=== PATIENT | male | born 1940 | race Caucasian/White ===

== ENCOUNTER 2019-07-10 05:34 | Emergency (ER) | payer MEDICARE, OTHER ==
[~2019-07-10] VITALS: Ht 180.3 cm; Wt 102.1 kg
[2019-07-10 07:00] LABS: BASOPHILS ABSOLUTE AUTO 0.04 K/mm3 (0.00-0.23); BASOPHILS PERCENT AUTO 1 % (0-2); EOSINOPHILS ABSOLUTE AUTO 0.23 K/mm3 (0.00-0.68); EOSINOPHILS PERCENT AUTO 4 % (0-6); Hematocrit 42.2 % (37.0-53.0); Hemoglobin 14.2 g/dL (13.5-17.5); IMMATURE GRAN ABSOLUTE AUTO 0.02 K/mm3 (0.00-0.10); IMMATURE GRAN PERCENT AUTO 0 % (0-1); LYMPHOCYTES ABSOLUTE AUTO 1.34 K/mm3 (0.84-5.20); LYMPHOCYTES PERCENT AUTO 24 % (21-46); MONOCYTES ABSOLUTE AUTO 0.55 K/mm3 (0.16-1.47); MONOCYTES PERCENT AUTO 10 % (4-13); Mean Corpuscular HGB 31.4 pg (26.0-34.0); Mean Corpuscular HGB Conc 33.6 g/dL (31.5-36.5); Mean Corpuscular Volume 93 fL (80-100); Mean Platelet Volume 10.6 fL (9.1-12.4); NEUTROPHILS ABSOLUTE AUTO 3.32 K/mm3 (1.96-9.15); NEUTROPHILS PERCENT AUTO 60 % (41-73); Platelet Count 177 K/mm3 (150-400); RDW Coefficient Variation 13.6 % (11.7-14.2); RDW Standard Deviation 46.5 fL (35.1-46.3); Red Blood Cell Count 4.52 M/mm3 (4.30-5.90)
[2019-07-10 07:19] LABS: Alanine Aminotransfer (ALT/SGP 17 U/L (12-78); Albumin, Blood 3.4 g/dL (3.4-5.0); Albumin/Globulin Ratio 1.2 (0.8-1.8); Alk Phos 86 U/L (50-136); Anion Gap 5 mmol/L (6-16); Aspartate Aminotrans (AST/SGOT 13 U/L (12-37); Bilirubin, Total 0.4 mg/dL (0.1-1.0); Blood Urea Nitrogen 13 mg/dL (8-24); Bun/Creatinine Ratio 12.5 (12.0-20.0); CO2, Blood 29 mmol/L (21-32); Calcium, Blood 8.9 mg/dL (8.5-10.1); Chloride, Blood 112 mmol/L (98-108); Creatinine, Blood 1.04 mg/dL (0.60-1.20); Globulin, Blood 2.8 g/dL (2.2-4.0); Glomerular Filtration Rate >60 (60-); Glucose, Blood 108 mg/dL (70-99); Potassium, Blood 4.1 mmol/L (3.5-5.5); Sodium, Blood 146 mmol/L (136-145); Total Protein, Blood 6.2 g/dL (6.4-8.2); Troponin I <0.015 ng/mL (0.000-0.040)
== END 2019-07-10 07:53 | disposition home or self-care (01) ==
LOC: ER 05:34
PROVIDERS: Emergency Medicine
DX: R53.1 Weakness (principal); Z88.8 Allergy status to other drugs, medicaments and biological substances
CPT/HCPCS: 36415; 80053; 84484; 85025; 93005; 93010; 99285-25

== ENCOUNTER → 2019-07-15 | Outpatient (CLI) | payer MEDICARE, OTHER ==
[2019-07-17 13:07] LABS: M-SPIKE, % Not Observed % (Not Observed); PROTEIN,TOTAL,URINE 5.2 mg/dL (Not Estab.)
== END | disposition home or self-care (01) ==
LOC: LAB SHORT 06:00 → OLS 06:00 → LAB FUT 07-08 14:00
PROVIDERS: Internal Medicine
DX: Z00.01 Encounter for general adult medical examination with abnormal findings (principal)
CPT/HCPCS: 81050; 84166

== ENCOUNTER → 2022-01-02 | Outpatient (CLI) | payer MEDICARE, BC ==
[2022-01-03 11:12] LABS: Campylobacter Sp Not Detected (NOT DETECT); Cryptosporidium Not Detected (NOT DETECT); Cyclospora Cayetanensis Not Detected (NOT DETECT); E. Coli O157 Not Detected (NOT DETECT); Entamoeba Histolytica Not Detected (NOT DETECT); Enteroaggregative E. coli-EAEC Not Detected (NOT DETECT); Enteropathogenic E. coli-EPEC Not Detected (NOT DETECT); Enterotoxigenic E. coli-ETEC Not Detected (NOT DETECT); Giardia Lamblia Not Detected (NOT DETECT); Plesiomonas Shigelloides Not Detected (NOT DETECT); Salmonella Sp Not Detected (NOT DETECT); Shiga Toxin-prod E. coli-STEC Not Detected (NOT DETECT); Shigella/Enteroin E. coli-EIEC Not Detected (NOT DETECT); Vibrio Cholerae Not Detected (NOT DETECT); Vibrio Sp Not Detected (NOT DETECT); Yersinia Enterocolitica Not Detected (NOT DETECT)
[2022-01-03 11:13] LABS: Adenovirus F 40/41 Not Detected (NOT DETECT); Astrovirus Not Detected (NOT DETECT); Norovirus GI/GII Not Detected (NOT DETECT); Rotavirus A Not Detected (NOT DETECT); Sapovirus Not Detected (NOT DETECT)
== END | disposition home or self-care (01) ==
LOC: LAB SHORT 20:30
PROVIDERS: Physician Assistant Medical
DX: R19.7 Diarrhea, unspecified (principal)
CPT/HCPCS: 0097U

== ENCOUNTER 2023-07-06 14:53 | Observation (INO) | payer OTHER ==
[~2023-07-06] VITALS: Ht 185.4 cm; Wt 102.2 kg
[2023-07-06 15:14] LABS: BASOPHILS ABSOLUTE AUTO 0.07 K/mm3 (0.00-0.23); BASOPHILS PERCENT AUTO 1 % (0-2); EOSINOPHILS ABSOLUTE AUTO 0.23 K/mm3 (0.00-0.68); EOSINOPHILS PERCENT AUTO 3 % (0-6); Hemoglobin 15.1 g/dL (13.5-17.5); IMMATURE GRAN ABSOLUTE AUTO 0.02 K/mm3 (0.00-0.10); IMMATURE GRAN PERCENT AUTO 0 % (0-1); LYMPHOCYTES ABSOLUTE AUTO 1.96 K/mm3 (0.84-5.20); LYMPHOCYTES PERCENT AUTO 26 % (21-46); MONOCYTES ABSOLUTE AUTO 0.47 K/mm3 (0.16-1.47); MONOCYTES PERCENT AUTO 6 % (4-13); Mean Corpuscular HGB 31.5 pg (26.0-34.0); Mean Corpuscular HGB Conc 35.1 g/dL (31.5-36.5); Mean Corpuscular Volume 90 fL (80-100); Mean Platelet Volume 10.9 fL (9.1-12.4); NEUTROPHILS ABSOLUTE AUTO 4.68 K/mm3 (1.96-9.15); NEUTROPHILS PERCENT AUTO 63 % (41-73); Platelet Count 200 K/mm3 (150-400); RDW Coefficient Variation 13.4 % (11.7-14.2); Red Blood Cell Count 4.79 M/mm3 (4.30-5.90); White Blood Cell Count 7.43 K/mm3 (4.00-11.30)
[2023-07-06 15:41] LABS: Albumin, Blood 3.7 g/dL (3.4-5.0); Albumin/Globulin Ratio 1.3 (0.8-1.8); Bilirubin, Total 0.4 mg/dL (0.1-1.0); Bun/Creatinine Ratio 20.4 (12.0-20.0); Calcium, Blood 9.1 mg/dL (8.5-10.1); Creatinine, Blood 1.08 mg/dL (0.60-1.20); Globulin, Blood 2.8 g/dL (2.2-4.0); Potassium, Blood 3.7 mmol/L (3.5-5.5); Total Protein, Blood 6.5 g/dL (6.4-8.2)
[2023-07-06] MEDS ORDERED: ALLEGRA ALLERG180 MG PO (17:05)
[2023-07-06] MEDS ORDERED: Flovent 220 Ora12 GM INH (17:06)
[2023-07-06] MEDS ORDERED: MONT5TCH (17:06)
[2023-07-06] MEDS ORDERED: COMBIVENT RESPIM4 G1 INH (17:06)
[2023-07-06] MEDS ORDERED: OLME5TAB PO (17:06)
[2023-07-06] MEDS ORDERED: Zocor20 MG PO (17:07)
[2023-07-06] MEDS ORDERED: ALLO100 PO (17:07)
[2023-07-06] MEDS ORDERED: VITAMIN D310 MC1 PO (17:07)
[2023-07-06] MEDS ORDERED: CYCL10 (17:07)
[2023-07-06] MEDS ORDERED: ASPI81CH PO (17:08)
[2023-07-06] MEDS ORDERED: IBUP200 PO (17:08)
[2023-07-06] MEDS ORDERED: CITRATE OF MAG296 M1 (17:08)
[2023-07-06 17:18] LABS: Source, Urine Voided
[2023-07-06 17:28] LABS: Appearance, Urine Clear (Clear); Bilirubin, Urine Neg (Neg); Blood, Urine Neg (Neg); Color, Urine Yellow (P-Yellow); Glucose Qualitative, Urine Neg (Neg); Ketones, Urine Neg (Neg); Leukocyte Esterase, Urine Neg (Neg); Nitrite, Urine Neg (Neg); Protein, Urine Neg (Neg); Specific Gravity, Urine 1.015 (1.003-1.022); Urobilinogen, Urine NORM (Normal)
--- NOTE | 2023-07-06 20:15 | NUR ---
ADMIT NOTE; PT ARRIVES FROM THE ED VIA WHEELCHAIR. UPON ADMIT THE PT IS AXO X4 AND ABLE TO INDEPENDENTLY TRANSFER FROM THE WHEELCHAIR TO THE BED. THE PT DENIES ANY ACUTE NEEDS AT TIME OF ADMIT. THE PT DENIES ANY CHEST PAIN/PRESSURE, SOB OR PAIN. THE PTS SKIN IS INTACT. CURRENTLY THE PT IS LAYING IN BED, TELE IS IN PLACE-NSR IN THE 70'S. THE BED IS IN THE LOWEST POSITION AND THE CALL LIGHT IS AT BEDSIDE. FIRE EDUCATION PROVIDED, THE PT DENIES HAVING ANY POSSIBLE IGNITION SOURCES IN POSSESSION AT THIS TIME.
[2023-07-06 20:24] VITALS: BP 200/72
[2023-07-06 20:26] VITALS: BP 195/87
--- NOTE | 2023-07-06 21:30 | NUR ---
CALLED [facility] [facility] REARDING PTS BLOOD PRESSURE. PER [facility] [facility] ALLOW PERMISSIVE HYPETENSION. PRN LABETALOL ORDERED FOR SBP >200.
--- NOTE | 2023-07-07 04:20 | NUR ---
SHIFT SUMMARY; NO ACUTE CHANGES OVERNIGHT. THE PT IS AXO X4 AND INDEPENDENT IN THE ROOM. THE PT HAS TELE ON-NSR IN THE 'S. THE PT WENT DOWN LAST NIGHT FOR AN MRI-RESULTS ARE STILL PENDING. THE PT DENIES ANY CHEST PAIN/PRESSURE, SOB, PAIN OR N/V T/O THE SHIFT. CURRENTLY THE PT IS SLEEPING IN BED WITH THE BED IN THE LOWEST POSITION AND THE CALL LIGHT AT BEDSIDE. FIRE SAFETY MAINTAINED T/O THE NIGHT.
[2023-07-07 04:31] VITALS: BP 194/66
[2023-07-07 05:39] LABS: CHOL/HDL RATIO 4.7; Cholesterol 156 mg/dL (50-200); HDL Cholesterol 33 mg/dL (>39); LDL/HDL RATIO 2.9; Low Density Lipoprotein Chol 96 mg/dL (0-110); Triglycerides 137 mg/dL (30-160); Very Low Density Lipoprot Chol 27 mg/dL (6-32)
[2023-07-07 07:26] VITALS: BP 163/80
[2023-07-07] MEDS ORDERED: Acetyl L-Carni500 MG PO (12:33)
[2023-07-07] MEDS ORDERED: Natrol Alpha 3300 MG PO (12:33)
[2023-07-07] MEDS ORDERED: ATOR40TA PO (13:04)
[2023-07-07] MEDS ORDERED: CLOP75 PO (13:04)
[2023-07-07] MEDS ORDERED: AMLO5 PO (13:04)
[2023-07-07] MEDS ORDERED: ASPI81CH PO (13:04)
[2023-07-07] MEDS ORDERED: LISI10 PO (13:05)
--- NOTE | 2023-07-07 13:44 | NUR ---
DISCHARGE NOTE PT DISCHARGED TO HOME, AT THE BS. PT WALKED OUT TO HIS CAR. IV REMOVED. DISCHARGE EDUCATION AND INFORMATION PROVIDED. MEDICATIONS FAXED TO THE PHARMACY OF HIS CHOICE. PERSONAL BELONGINGS RETURNED.
== END 2023-07-07 13:36 | disposition home or self-care (01) ==
LOC: ER 14:53 → MEDS 14:54
PROVIDERS: Emergency Medicine; Nurse Practitioner Acute Care; ADMIT Internal Medicine
DX: G45.9 Transient cerebral ischemic attack, unspecified (principal); I16.9 Hypertensive crisis, unspecified; E78.5 Hyperlipidemia, unspecified
CPT/HCPCS: 36415; 70450; 70551; 80053; 80061; 81003; 82947; 83036; 85025; 93005; 93010; 93306; 93880; 96372; 99285-25; A9270; G0378; J1650

== ENCOUNTER 2023-11-12 07:05 | Emergency (ER) | payer OTHER ==
[~2023-11-12] VITALS: Ht 180.3 cm; Wt 104.3 kg
[~2023-11-12 07:05] MED LIST: ALLEGRA ALLERG180 MG PO; ALLO100 PO; AMLO5 PO; ASPI81CH PO; ATOR40TA PO; Acetyl L-Carni500 MG PO; CITRATE OF MAG296 M1; CLOP75 PO; COMBIVENT RESPIM4 G1 INH; CYCL10; Flovent 220 Ora12 GM INH; IBUP200 PO; LISI10 PO; MONT5TCH; Natrol Alpha 3300 MG PO; OLME5TAB PO; VITAMIN D310 MC1 PO; Zocor20 MG PO
[2023-11-12 07:19] VITALS: BP 189/62
[2023-11-12 08:30] LABS: Source, Urine Clean Catch
[2023-11-12 08:39] LABS: Appearance, Urine Clear (Clear); Bilirubin, Urine Neg (Neg); Blood, Urine Neg (Neg); Color, Urine Yellow (P-Yellow); Glucose Qualitative, Urine Neg (Neg); Ketones, Urine Neg (Neg); Leukocyte Esterase, Urine Neg (Neg); Nitrite, Urine Neg (Neg); Protein, Urine Neg (Neg); Specific Gravity, Urine 1.005 (1.003-1.022); Urobilinogen, Urine NORM (Normal)
== END 2023-11-12 09:40 | disposition home or self-care (01) ==
LOC: ER 07:05
PROVIDERS: Physician Assistant
DX: M62.830 Muscle spasm of back (principal); G89.29 Other chronic pain; Z88.8 Allergy status to other drugs, medicaments and biological substances
CPT/HCPCS: 81003; 99283

== ENCOUNTER → 2025-06-02 | Outpatient (CLI) | payer OTHER ==
[2025-06-02 10:52] LABS: BASOPHILS ABSOLUTE AUTO 0.02 K/mm3 (0.00-0.23); BASOPHILS PERCENT AUTO 0 % (0-2); EOSINOPHILS ABSOLUTE AUTO 0.02 K/mm3 (0.00-0.68); EOSINOPHILS PERCENT AUTO 0 % (0-6); Hematocrit 46.8 % (37.0-53.0); Hemoglobin 16.2 g/dL (13.5-17.5); IMMATURE GRAN ABSOLUTE AUTO 0.07 K/mm3 (0.00-0.10); IMMATURE GRAN PERCENT AUTO 1 % (0-1); LYMPHOCYTES ABSOLUTE AUTO 1.06 K/mm3 (0.84-5.20); LYMPHOCYTES PERCENT AUTO 10 % (21-46); MONOCYTES ABSOLUTE AUTO 0.75 K/mm3 (0.16-1.47); MONOCYTES PERCENT AUTO 7 % (4-13); Mean Corpuscular HGB Conc 34.6 g/dL (31.5-36.5); Mean Corpuscular Volume 95 fL (80-100); NEUTROPHILS ABSOLUTE AUTO 9.00 K/mm3 (1.96-9.15); NEUTROPHILS PERCENT AUTO 82 % (41-73); NRBC ABSOLUTE 0.00 K/mm3 (0.00-0.02); NRBC Auto 0.0 /100 WBC (0.0-0.2); Platelet Count 221 K/mm3 (150-400); RDW Coefficient Variation 14.0 % (11.7-14.2); RDW Standard Deviation 48.1 fL (35.1-46.3)
[2025-06-02 11:04] LABS: Alanine Aminotransfer (ALT/SGP 20.0 U/L (12-78); Albumin, Blood 3.8 g/dL (3.4-5.0); Albumin/Globulin Ratio 1.1 (0.8-1.8); Anion Gap 12.0 mmol/L (3-11); Aspartate Aminotrans (AST/SGOT 10.0 U/L (12-37); Bilirubin, Total 0.6 mg/dL (0.1-1.0); Blood Urea Nitrogen 25.0 mg/dL (8-24); CO2, Blood 28.0 mmol/L (21-32); Calcium, Blood 9.9 mg/dL (8.5-10.1); Chloride, Blood 107.0 mmol/L (98-108); Creatinine, Blood 1.1 mg/dL (0.60-1.20); Globulin, Blood 3.4 g/dL (2.2-4.0); Glucose, Blood 116.0 mg/dL (70-99); Potassium, Blood 4.3 mmol/L (3.5-5.5); Sodium, Blood 143.0 mmol/L (136-145); Total Protein, Blood 7.2 g/dL (6.4-8.2)
== END | disposition home or self-care (01) ==
LOC: LAB SHORT 10:48 → LAB 10:48
DX: R42 Dizziness and giddiness (principal)
CPT/HCPCS: 80053; 84484; 85025